=== PATIENT | female | born 1955 | race Caucasian/White ===

== ENCOUNTER 2020-07-31 08:10 | Day surgery (SDC) | payer MEDICARE, BC ==
[~2020-07-31] VITALS: Ht 165.1 cm; Wt 117.0 kg
[2020-07-31] VITALS (8 sets, daily range): BP systolic 126–144; BP diastolic 55–77
[2020-07-31] MEDS ORDERED: LEVO100C4 PO (09:10)
[2020-07-31] MEDS ORDERED: ATEN50TA PO (09:10)
[2020-07-31] MEDS ORDERED: CITA40TA22 PO (09:10)
[2020-07-31] MEDS ORDERED: METF-900 PO (09:10)
[2020-07-31] MEDS ORDERED: LOSA50TA3 PO (09:10)
[2020-07-31] MEDS ORDERED: MONT10TA32 PO (09:10)
[2020-07-31] MEDS ORDERED: CETI-90 PO (09:10)
[2020-07-31 12:27] LABS: TOTAL PROTEIN,CSF 43 MG/DL (30-60)
[2020-07-31 12:32] LABS: LDH,BODY FLUID 23 U/L
[2020-08-02 15:42] LABS: VDRL, CSF Non Reactive (Non Rea:<1:1)
== END 2020-07-31 14:15 | disposition home or self-care (01) ==
LOC: SSTAY O 08:10
PROVIDERS: ATTEND Ophthalmology
DX: H47.11 Papilledema associated with increased intracranial pressure (principal); G47.30 Sleep apnea, unspecified; K21.9 Gastro-esophageal reflux disease without esophagitis; I10 Essential (primary) hypertension; E11.9 Type 2 diabetes mellitus without complications; E03.9 Hypothyroidism, unspecified; Z98.41 Cataract extraction status, right eye; Z98.42 Cataract extraction status, left eye; Z98.890 Other specified postprocedural states; Z79.899 Other long term (current) drug therapy
CPT/HCPCS: 36415; 62328; 77003; 83615; 84157; 86592; 86617; 87015; 87070; 87102